=== PATIENT | female | born 1960 | race Two or more races ===

== ENCOUNTER 2017-01-30 08:24 | Day surgery (SDC) | payer BC ==
[~2017-01-30] VITALS: Ht 152.4 cm; Wt 58.0 kg
[2017-01-30] MEDS ORDERED: METFORMIN (09:16)
[2017-01-30] MEDS ORDERED: LEVOTHYROXINE (09:16)
[2017-01-30] MEDS ORDERED: FENOFIBRATE (09:16)
[2017-01-30 09:18] VITALS: Ht 152.4 cm; Wt 58.0 kg
[2017-01-30 09:50] VITALS: BP 155/91; PULSE 82; RESP 19
[2017-01-30 10:31] VITALS: BP 145/80; PULSE 74; RESP 18
[2017-01-30] MEDS ORDERED: FENTAnyl 50 MCG/ML VIAL ONE (10:35)
[2017-01-30] MEDS ORDERED: MIDAZOLAM 1 MG/ML 2 ML INJ ONE ×2 (10:35)
[2017-01-30 10:55] VITALS: BP 143/87; PULSE 78; RESP 12
--- NOTE | 2017-02-03 11:44 | GILP ---
DATE OF PROCEDURE: 01/30/2017 PROCEDURE PERFORMED: Esophagogastroduodenoscopy and biopsy. Colonoscopy. SURGEON: Evans Moncada MD PREOPERATIVE DIAGNOSES: Abdominal pain. Chronic heartburn. Screening colonoscopy. POSTOPERATIVE DIAGNOSES: Gastroesophageal reflux disease. Gastritis with erosions. Gastric mucosal biopsies were taken for Helicobacter pylori test. Colonoscopy all the way to the cecum. Diverticulosis of the colon. Internal hemorrhoids. No colon neoplasm was identified. INDICATIONS: The patient is a 56-year-old female patient, who had upper abdominal pain and chronic heartburn not responding to therapy. The patient also needed a screening colonoscopy. The procedures and possible complications were well explained to the patient. The patient understood and consented to the procedure. DESCRIPTION OF PROCEDURE: Under the influence of fentanyl and Versed, the gastroscope was carefully introduced into the esophagus, and under direct vision, it was advanced to the stomach, into the pylorus, into the duodenal bulb, and descending duodenum. FINDINGS: Esophagus: The patient had gastroesophageal reflux disease. Stomach: She had gastritis with erosions. Gastric mucosal biopsies were taken for Helicobacter pylori test. Duodenum: Normal. DESCRIPTION OF PROCEDURE: The colonoscope was carefully introduced in the rectum, and under direct vision, it was advanced all the way to the cecum. FINDINGS: The patient had diverticulosis of the colon. She also had internal hemorrhoids. No colon neoplasm was identified. She tolerated the procedures very well. There was no complication from the procedures. At the end of the procedures she was awake, with stable vital signs and she was discharged to the care of her family. IMPRESSION: Please see postoperative diagnoses. PLAN: Nexium 24 hours p.o. q.a.m. Await Helicobacter pylori test report. Screening colonoscopy in 10 years. Advised high-fiber diet. Dictated By: MD KOREY Waterman/jyoti/bjc /Document#: [id number]
== END 2017-01-30 19:36 | disposition home or self-care (01) ==
LOC: GIL 08:24
PROVIDERS: ATTEND Internal Medicine Gastroenterology
DX: Z12.11 Encounter for screening for malignant neoplasm of colon (principal); K57.90 Diverticulosis of intestine, part unspecified, without perforation or abscess without bleeding; K21.9 Gastro-esophageal reflux disease without esophagitis; B96.81 Helicobacter pylori [H. pylori] as the cause of diseases classified elsewhere; E11.9 Type 2 diabetes mellitus without complications; K64.8 Other hemorrhoids; K29.60 Other gastritis without bleeding
CPT/HCPCS: 43239; 45378; 82962; 87081; J2250; J3010; Z7610